=== PATIENT | male | born 1965 | race African-American/Black ===

== ENCOUNTER → 2019-07-28 | Outpatient (CLI) | payer OTHER | LOC: MRI 09:27 | PROVIDERS: ATTEND Family Medicine | DX: M51.26 Other intervertebral disc displacement, lumbar region (principal); M54.30 Sciatica, unspecified side; M25.78 Osteophyte, vertebrae ==

== ENCOUNTER → 2019-08-13 | Outpatient (CLI) | payer OTHER | LOC: MRI 07:26 | PROVIDERS: ATTEND Neurological Surgery | DX: M47.22 Other spondylosis with radiculopathy, cervical region (principal); M48.02 Spinal stenosis, cervical region; M50.11 Cervical disc disorder with radiculopathy, high cervical region ==

== ENCOUNTER → 2019-08-26 | Outpatient (CLI) | payer BC | LOC: MRI 13:47 | PROVIDERS: ATTEND Neurological Surgery | DX: G37.8 Other specified demyelinating diseases of central nervous system (principal) ==